=== PATIENT | male | born 1985 | race Caucasian/White ===

== ENCOUNTER 2017-02-21 11:38 | Emergency (ER) | payer BC, OTHER ==
[~2017-02-21] VITALS: Ht 175.3 cm; Wt 75.0 kg
[~2017-02-21 11:38] MED LIST: ADDE10XR PO; BACT800T5 PO; CLIN1CAP5 PO; HYDR-3533 PO
[2017-02-21 11:40] VITALS: BP 180/98; PULSE 115; RESP 18; TEMP 98.3; O2SAT 98
--- NOTE | 2017-02-21 12:01 | PD ---
HPI Chief Complaint: Psychiatric Symptoms Time Seen by Provider: 11:59 Travel History International Travel<30 days: No Contact w/Intl Traveler<30days: No Traveled to known affect area: No History of Present Illness HPI 31-year-old male presents to emergency department with increased anger over the last year. Patient states he went to [facility] and they recommended he go to [facility]. Patient went to [facility] waited 5 hours and told him that they were full and were unable to see him. Patient is here today because he is concerned about losing his family. Patient states he has a fiance in [place]. Patient denies suicidal or homicidal ideations. Denies hallucinations. Has a history of ADD and anxiety. He does take Adderall, metoprolol, and losartan. 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 Patient has a history of Suboxone use but has been off of this medication for approximate 7-8 months. Patient states he receives his Adderall from his primary care physician, Dr. Hill. He requested evaluation by our psychiatrist today. PFSH Past Medical History ADHD: Yes Anxiety: Yes Cardiovascular Problems: Yes (HTN) Diminished Hearing: No Hypertension: Yes (hx in the past but does not take medication) Psychiatric: Yes Immunizations Current: Yes Tetanus Vaccination: < 5 Years Influenza Vaccination: Yes Past Surgical History Eye Surgery: Yes (LEFT EYE COSMETIC SURGERY) Social History Alcohol Use: Yes (ocassionally) Tobacco Use: Yes (1 PPD) Substance Use: No (pt denies) Allergies-Medications (Allergen,Severity, Reaction): Coded Allergies: penicillin G (Verified Allergy, Severe, Anaphylaxis, 02/21/17) codeine (Verified Allergy, Mild, HIVES, 02/21/17) Reported Meds & Prescriptions Reported Meds & Active Scripts Active No Active Prescriptions or Reported Medications Review of Systems Except as stated in HPI: all other systems reviewed are Neg Physical Exam Narrative GENERAL: Well-nourished, well-developed patient. SKIN: Focused skin assessment warm/dry. HEAD: Normocephalic. EYES: No scleral icterus. No injection or drainage. NECK: Supple, trachea midline. No JVD or lymphadenopathy. CARDIOVASCULAR: Regular rate and rhythm without murmurs, gallops, or rubs. RESPIRATORY: Breath sounds equal bilaterally. No accessory muscle use. GASTROINTESTINAL: Abdomen soft, non-tender, nondistended. MUSCULOSKELETAL: No cyanosis, or edema. BACK: Nontender without obvious deformity. No CVA tenderness. Data Data Last Documented VS Vital Signs Date Time Temp Pulse Resp B/P (MAP) Pulse Ox O2 Delivery O2 Flow Rate FiO2 02/21/17 17:30 02/21/17 11:58 17 02/21/17 11:40 98.3 115 98 Room Air Orders Orders Complete Blood Count With Diff (02/21/17 12:05) Comprehensive Metabolic Panel (02/21/17 12:05) Thyroid Stimulating Hormone (02/21/17 12:05) Urinalysis - C+S If Indicated (02/21/17 12:05) Psych Screen (02/21/17 12:05) Drug Screen, Random Urine (02/21/17 12:05) Metoprolol Tartrate (Lopressor) (02/21/17 12:15) Losartan (Cozaar) (02/21/17 12:15) Ed Discharge Order (02/21/17 16:45) Labs Laboratory Tests Test 02/21/17 12:30 White Blood Count 12.2 TH/MM3 Red Blood Count 5.76 MIL/MM3 Hemoglobin 17.6 GM/DL Hematocrit 52.1 % Mean Corpuscular Volume 90.5 FL Mean Corpuscular Hemoglobin 30.5 PG Mean Corpuscular Hemoglobin Concent 33.8 % Red Cell Distribution Width 15.7 % Platelet Count 265 TH/MM3 Mean Platelet Volume 9.4 FL Neutrophils (%) (Auto) 79.0 % Lymphocytes (%) (Auto) 11.8 % Monocytes (%) (Auto) 6.9 % Eosinophils (%) (Auto) 1.9 % Basophils (%) (Auto) 0.4 % Neutrophils # (Auto) 9.6 TH/MM3 Lymphocytes # (Auto) 1.4 TH/MM3 Monocytes # (Auto) 0.8 TH/MM3 Eosinophils # (Auto) 0.2 TH/MM3 Basophils # (Auto) 0.1 TH/MM3 CBC Comment DIFF FINAL Differential Comment Urine Color YELLOW Urine Turbidity HAZY Urine pH 7.0 Urine Specific [place] 1.022 Urine Protein TRACE mg/dL Urine Glucose (UA) NEG mg/dL Urine Ketones NEG mg/dL Urine Occult Blood NEG Urine Nitrite NEG Urine Bilirubin NEG Urine Urobilinogen LESS THAN 2.0 MG/DL Urine Leukocyte Esterase NEG Urine RBC 7 /hpf Urine WBC LESS THAN 1 /hpf Urine Amorphous Sediment FEW Urine Mucus FEW /lpf Microscopic Urinalysis Comment CULT NOT INDICATED Blood Urea Nitrogen 7 MG/DL Creatinine 1.02 MG/DL Random Glucose 78 MG/DL Total Protein 7.4 GM/DL Albumin 3.8 GM/DL Calcium Level 8.7 MG/DL Alkaline Phosphatase 42 U/L Aspartate Amino Transf (AST/SGOT) 18 U/L Alanine Aminotransferase (ALT/SGPT) 40 U/L Total Bilirubin 0.9 MG/DL Sodium Level 134 MEQ/L Potassium Level 3.7 MEQ/L Chloride Level 100 MEQ/L Carbon Dioxide Level 26.9 MEQ/L Anion Gap 7 MEQ/L Estimat Glomerular Filtration Rate 84 ML/MIN Thyroid Stimulating Hormone 3rd Gen 1.050 uIU/ML Urine Opiates Screen NEG Urine Barbiturates Screen NEG Urine Amphetamines Screen POS Urine Benzodiazepines Screen NEG Urine Cocaine Screen NEG Urine Cannabinoids Screen POS MDM Medical Decision Making Medical Screen Exam Complete: Yes Emergency Medical Condition: Yes Differential Diagnosis Anxiety versus panic attacks versus depression versus ADD Narrative Course 31-year-old male presents to emergency department with increased anger over the last year. Patient states he went to [facility] and they recommended he go to [facility]. Patient went to [facility] waited 5 hours and told him that they were full and were unable to see him. Patient is here today because he is concerned about losing his family. Patient states he has a fiance in [place]. Patient denies suicidal or homicidal ideations. Denies hallucinations. Has a history of ADD and anxiety. He does take Adderall, metoprolol, and losartan. 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 Patient has a history of Suboxone use but has been off of this medication for approximate 7-8 months. Patient states he receives his Adderall from his primary care physician, Dr. Hill. He requested evaluation by our psychiatrist today. He believes he needs a mood stabilizer. Vital signs- tachycardia and hypertension Patient has not taken his metoprolol or losartan today. Metoprolol tartrate 50 mg and losartan 50 mg administered in the emergency department I explained to the patient the process of being seen by psychiatrist. Because his symptoms have been increasing over the last year ordered TSH as well for evaluation. Patient does seem reasonable and educated. He also appears to want to improve his mental state. Laboratory Tests Test 02/21/17 12:30 White Blood Count 12.2 TH/MM3 Red Blood Count 5.76 MIL/MM3 Hemoglobin 17.6 GM/DL Hematocrit 52.1 % Mean Corpuscular Volume 90.5 FL Mean Corpuscular Hemoglobin 30.5 PG Mean Corpuscular Hemoglobin Concent 33.8 % Red Cell Distribution Width 15.7 % Platelet Count 265 TH/MM3 Mean Platelet Volume 9.4 FL Neutrophils (%) (Auto) 79.0 % Lymphocytes (%) (Auto) 11.8 % Monocytes (%) (Auto) 6.9 % Eosinophils (%) (Auto) 1.9 % Basophils (%) (Auto) 0.4 % Neutrophils # (Auto) 9.6 TH/MM3 Lymphocytes # (Auto) 1.4 TH/MM3 Monocytes # (Auto) 0.8 TH/MM3 Eosinophils # (Auto) 0.2 TH/MM3 Basophils # (Auto) 0.1 TH/MM3 CBC Comment DIFF FINAL Differential Comment Urine Color YELLOW Urine Turbidity HAZY Urine pH 7.0 Urine Specific [place] 1.022 Urine Protein TRACE mg/dL Urine Glucose (UA) NEG mg/dL Urine Ketones NEG mg/dL Urine Occult Blood NEG Urine Nitrite NEG Urine Bilirubin NEG Urine Urobilinogen LESS THAN 2.0 MG/DL Urine Leukocyte Esterase NEG Urine RBC 7 /hpf Urine WBC LESS THAN 1 /hpf Urine Amorphous Sediment FEW Urine Mucus FEW /lpf Microscopic Urinalysis Comment CULT NOT INDICATED Blood Urea Nitrogen 7 MG/DL Creatinine 1.02 MG/DL Random Glucose 78 MG/DL Total Protein 7.4 GM/DL Albumin 3.8 GM/DL Calcium Level 8.7 MG/DL Alkaline Phosphatase 42 U/L Aspartate Amino Transf (AST/SGOT) 18 U/L Alanine Aminotransferase (ALT/SGPT) 40 U/L Total Bilirubin 0.9 MG/DL Sodium Level 134 MEQ/L Potassium Level 3.7 MEQ/L Chloride Level 100 MEQ/L Carbon Dioxide Level 26.9 MEQ/L Anion Gap 7 MEQ/L Estimat Glomerular Filtration Rate 84 ML/MIN Thyroid Stimulating Hormone 3rd Gen 1.050 uIU/ML Urine Opiates Screen NEG Urine Barbiturates Screen NEG Urine Amphetamines Screen POS Urine Benzodiazepines Screen NEG Urine Cocaine Screen NEG Urine Cannabinoids Screen POS WBCs mildly elevated. Patient denies recent illnesses. Likely reactive. UDS pos for cannabinoids and amphetamines. Consistent with patient's use of Adderall. TSH within normal limits. Patient is medically cleared see psych. Psych has evaluated him and found that he does not meet criteria to be admitted. In addition, because of the weekend and inability to follow up with a psychiatrist, he will not be prescribed medication for his mood. He was advised to follow up Friday with Scott Bello as scheduled by the psych team. Advised to use Benadryl for his insomnia symptoms. Patient understands and appreciates his care today. Diagnosis Primary Impression: Anxiety Referrals: Psychiatrist Additional Instructions: Follow up with Scott Bello as scheduled. If your symptoms persist or worsen return to the emergency department Scripts No Active Prescriptions or Reported Meds Disposition: 01 DISCHARGE HOME Condition: Stable Padmini Isaac Feb 21, 2017 12:01
[2017-02-21] MEDS ORDERED: LOSARTAN 50 MG TAB PO ONE (12:15)
[2017-02-21] MEDS ORDERED: METOPROLOL TARTRATE 50 MG TAB PO ONE (12:15)
[2017-02-21 12:44] LABS: AUTOMATED NEUTROPHIL # 9.6 TH/MM3 (1.8-7.7); BASOPHIL # 0.1 TH/MM3 (0-0.2); BASOPHIL % 0.4 % (0.0-2.0); EOSINOPHIL # 0.2 TH/MM3 (0-0.4); EOSINOPHIL % 1.9 % (0.0-4.0); HEMATOCRIT 52.1 % (39.0-51.0); HEMO FLAGS DIFF FINAL; LYMPH % 11.8 % (9.0-44.0); LYMPHOCYTE # 1.4 TH/MM3 (1.0-4.8); MEAN CELL VOLUME 90.5 FL (80.0-100.0); MEAN CORPUSCULAR HEMOGLOBIN 30.5 PG (27.0-34.0); MEAN CORPUSCULAR HGB CONC 33.8 % (32.0-36.0); MONO % 6.9 % (0.0-8.0); PLATELET COUNT 265 TH/MM3 (150-450); RED BLOOD COUNT 5.76 MIL/MM3 (4.50-5.90); RED CELL DISTRIBUTION WIDTH 15.7 % (11.6-17.2); WHITE BLOOD COUNT 12.2 TH/MM3 (4.0-11.0)
[2017-02-21 12:49] LABS: BLOOD, URINE NEG (NEG); COMMENT (UR) CULT NOT INDICATED; CULTURE IF INDICATED CULT NOT INDICATED; GLUCOSE,URINE NEG (NEG); KETONE, URINE NEG (NEG); MUCUS URINE FEW /lpf (OCC); NITRITE,URINE NEG (NEG); URINE COLOR YELLOW (YELLW/STRAW)
[2017-02-21 13:05] LABS: ALT (GPT) 40 U/L (12-78); ANION GAP 7 MEQ/L (5-15); AST (GOT) 18 U/L (15-37); BICARBONATE 26.9 MEQ/L (21.0-32.0); BLOOD UREA NITROGEN 7 MG/DL (7-18); CHLORIDE 100 MEQ/L (98-107); GLOMERULAR FILTRATION RATE 84 ML/MIN (>89); POTASSIUM 3.7 MEQ/L (3.5-5.1); SODIUM (NA) 134 MEQ/L (136-145)
[2017-02-21 13:16] LABS: ALKALINE PHOSPHATASE 42 U/L (45-117); TOTAL BILIRUBIN ADULT 0.9 MG/DL (0.2-1.0)
== END 2017-02-21 17:33 | disposition home or self-care (01) ==
LOC: NEPE 11:38 → NEPJ 17:33
DX: F41.9 Anxiety disorder, unspecified (principal); R00.0 Tachycardia, unspecified; I10 Essential (primary) hypertension; F98.8 Other specified behavioral and emotional disorders with onset usually occurring in childhood and adolescence; F90.9 Attention-deficit hyperactivity disorder, unspecified type; F17.200 Nicotine dependence, unspecified, uncomplicated; Z88.0 Allergy status to penicillin; Z88.5 Allergy status to narcotic agent
CPT/HCPCS: 80053; 80307; 81001; 84443; 85025; 99285

== ENCOUNTER 2017-05-24 17:21 | Emergency (ER) | payer OTHER ==
[~2017-05-24] VITALS: Ht 177.8 cm; Wt 72.0 kg
[2017-05-24 17:31] VITALS: BP 209/93; PULSE 96; RESP 16; TEMP 98.2; O2SAT 98
[2017-05-24] MEDS ORDERED: BACT800T5 PO (17:49)
--- NOTE | 2017-05-24 17:54 | PD ---
HPI Chief Complaint: Skin Problem Time Seen by Provider: 17:36 Travel History International Travel<30 days: No Contact w/Intl Traveler<30days: No Traveled to known affect area: No History of Present Illness HPI 32-year-old male that presents to the ED for evaluation of possible infection to his left arm. Patient states that he has a history of staph infections. He had one on his leg as well as on his chest that had to be drained. Per patient he hasn't had one in a while but every time he gets a bite he gets this. Per patient this has been going on for 3 days. Per patient is started like a little pimple and now is becoming more significant. Per patient is very erythematous and warm to touch. Is concerned about a staph infection again. Patient prefers not to have it drained if possible. Patient states that the pain is 4 out of 10. Denies any other injuries. Allergy to codeine and penicillin. Has not seen anybody for this. No history of IV drug or MRSA. PFSH Past Medical History ADHD: Yes Anxiety: Yes Cardiovascular Problems: Yes (HTN) Diminished Hearing: No Hypertension: Yes (hx in the past but does not take medication) Psychiatric: Yes Immunizations Current: Yes Tetanus Vaccination: < 5 Years Past Surgical History Eye Surgery: Yes (LEFT EYE COSMETIC SURGERY) Social History Alcohol Use: Yes (ocassionally) Tobacco Use: Yes (1 PPD) Substance Use: Yes (Pt denies current use/abuse.) Allergies-Medications (Allergen,Severity, Reaction): Coded Allergies: penicillin G (Verified Allergy, Severe, Anaphylaxis, 05/24/17) codeine (Verified Allergy, Mild, HIVES, 05/24/17) Reported Meds & Prescriptions Reported Meds & Active Scripts Active Bactrim DS (Sulfamethoxazole-Trimethoprim) 800-160 Mg Tab 1 Tab PO BID 14 Days Review of Systems Except as stated in HPI: all other systems reviewed are Neg Physical Exam Narrative GENERAL: SKIN: Warm and dry. HEAD: Atraumatic. Normocephalic. EYES: Pupils equal and round. No scleral icterus. No injection or drainage. ENT: No nasal bleeding or discharge. Mucous membranes pink and moist. Tongue is midline. No uvula deviation. NECK: Trachea midline. No JVD. CARDIOVASCULAR: Regular rate and rhythm. RESPIRATORY: No accessory muscle use. Clear to auscultation. Breath sounds equal bilaterally. GASTROINTESTINAL: Abdomen soft, non-tender, nondistended. Hepatic and splenic margins not palpable. MUSCULOSKELETAL: Extremities without clubbing, cyanosis, or edema. No obvious deformities. Full range of motion of the upper and lower extremities bilaterally. Patient has an area of erythema on the left elbow. About 4 cm in diameter. Patient does have an area of possible induration in the center that is about less than 1 cm in diameter with a small opening. No purulence noted. Slightly tender to touch. Very warm to touch. 2+ pulses bilaterally. Full range of motion of the elbow. NEUROLOGICAL: Awake and alert. No obvious cranial nerve deficits. Motor grossly within normal limits. Five out of 5 muscle strength in the arms and legs. Normal speech. PSYCHIATRIC: Appropriate mood and affect; insight and judgment normal. Data Data Last Documented VS Vital Signs Date Time Temp Pulse Resp B/P (MAP) Pulse Ox O2 Delivery O2 Flow Rate FiO2 05/24/17 17:31 98.2 96 16 209/93 (131) 98 Orders Orders Ed Discharge Order (05/24/17 17:49) MDM Medical Decision Making Medical Screen Exam Complete: Yes Emergency Medical Condition: Yes Medical Record Reviewed: Yes Differential Diagnosis Abscesses versus cellulitis versus staph infection Narrative Course 32-year-old male that presents to the ED for evaluation of left arm infection. Patient was properly examined and was found to have signs and symptoms very consistent appears to be early cellulitis likely from staph infection. I reviewed his medical records and he did grew staph in 2014 when he was seen here. We'll start on Bactrim which symptoms to work for him before. Wound care was endorsed. Watch for signs of worsening symptoms. Patient agrees with this. Follow with PCP. See ED worsening symptoms. Diagnosis Primary Impression: Cellulitis Qualified Codes: L03.114 - Cellulitis of left upper limb Patient Instructions: General Instructions Additional Instructions: Take medication as prescribed. Motrin for pain. Follow with PCP. See ED worsening symptoms. Med/Other Pt SpecificInfo: Prescription(s) given Scripts Sulfamethoxazole-Trimethoprim (Bactrim DS) 800-160 Mg Tab 1 TAB PO BID for Infection for 14 Days, #28 TAB 1 Refill Prov: René Sutherland MD 05/24/17 Disposition: 01 DISCHARGE HOME Condition: Stable Cesar Burch May 24, 2017 17:54
[2017-05-24 17:56] VITALS: BP 167/101
== END 2017-05-24 18:02 | disposition home or self-care (01) ==
LOC: PHEFT 17:21
DX: L03.114 Cellulitis of left upper limb (principal); F90.9 Attention-deficit hyperactivity disorder, unspecified type; F41.9 Anxiety disorder, unspecified; I10 Essential (primary) hypertension; F17.200 Nicotine dependence, unspecified, uncomplicated
CPT/HCPCS: 99283